=== PATIENT | male | born 1955 | race Caucasian/White ===

== ENCOUNTER 2023-02-28 08:20 | Day surgery (SDC) | payer MEDICARE ==
[~2023-02-28] VITALS: Ht 172.7 cm; Wt 86.8 kg
[~2023-02-28 08:20] MED LIST: ALBU8.5H INH; ATOR1TAB19 PO; BUDE10.7 INH; CALC600T57 PO; ECOT81TA5 PO; LOSA50TA28 PO; SEMA1PEN2 SC; WARF-20 PO; WARF-23 PO
[2023-02-28] MEDS: LR 1,000 ML IV SCH (09:05)
[2023-02-28 09:07] LABS: INR 1.04; PROTHROMBIN TIME 13.3 SECONDS (12.5-14.5)
[2023-02-28 09:08] LABS: PARTIAL THROMBOPLASTIN TIME 29.2 SECONDS (24.8-34.2)
[2023-02-28] MEDS ORDERED: ROCURONIUM BROMIDE 50MG/5ML VIAL As Ordered ONE (09:14)
[2023-02-28] MEDS ORDERED: propofoL 200 MG/20 ML VIAL As Ordered ONE (09:14)
[2023-02-28] MEDS ORDERED: LIDOCAINE 2% 100MG/5ML SDV (FOR ANES.) As Ordered ONE (09:14)
[2023-02-28] MEDS ORDERED: ONDANSETRON 4MG 2ML VIAL As Ordered ONE (09:14)
[2023-02-28] MEDS ORDERED: MIDAZOLAM INJ 2MG/2ML VIAL As Ordered ONE (09:15)
[2023-02-28] MEDS ORDERED: fentaNYL 100 MCG/2 ML INJECTION As Ordered ONE (09:15)
[2023-02-28] MEDS ORDERED: SUGAMMADEX SODIUM 500 MG/5 ML VIAL (BRIDION) As Ordered ONE (09:15)
[2023-02-28] MEDS: LIDOCAINE PRES-FREE 2% 10ML AMP INH ONE (09:19)
[2023-02-28] MEDS: ALBUTEROL SULFATE 2.5MG/0.5ML INH NEB SOLN INH ONE (09:19)
[2023-02-28] MEDS: CETACAINE SPRAY 5GM As Ordered ONE (10:00)
[2023-02-28] MEDS: EPINEPHrine 1MG/10ML SYRINGE 1.5IN As Ordered ONE (10:00)
[2023-02-28] MEDS ORDERED: PHENYLephrine 500MCG 5ML (100MCG/ML) SYRINGE As Ordered ONE (10:09)
[2023-02-28] MEDS ORDERED: oxyCODONE 5MG TAB PO PRN (10:45)
[2023-02-28] MEDS ORDERED: LR 1,000 ML IV SCH (10:45)
[2023-02-28] MEDS ORDERED: ONDANSETRON 4MG 2ML VIAL IV PRN (10:45)
[2023-02-28] MEDS ORDERED: fentaNYL 100 MCG/2 ML INJECTION IV PRN (10:45)
[2023-02-28] MEDS ORDERED: HYDROMORPHONE HCL 0.5 MG/ 0.5 ML SYRINGE IV PRN (10:45)
[2023-02-28 11:53] VITALS: BP 169/83
[2023-02-28] MEDS: LOSARTAN 50MG TABLET PO ONE (11:53)
[2023-02-28 12:36] VITALS: BP 142/82; TEMP 97.4; O2SAT 95
== END 2023-02-28 12:52 | disposition home or self-care (01) ==
LOC: M SDC 08:20
PROVIDERS: ATTEND Internal Medicine Pulmonary Disease
DX: C15.9 Malignant neoplasm of esophagus, unspecified (principal); R59.0 Localized enlarged lymph nodes; J44.9 Chronic obstructive pulmonary disease, unspecified; I10 Essential (primary) hypertension; E11.9 Type 2 diabetes mellitus without complications; E78.00 Pure hypercholesterolemia, unspecified; Z79.82 Long term (current) use of aspirin; Z86.711 Personal history of pulmonary embolism; F17.210 Nicotine dependence, cigarettes, uncomplicated; Z79.01 Long term (current) use of anticoagulants; Z79.899 Other long term (current) drug therapy
CPT/HCPCS: 31623; 31652; 36415; 71045; 85610; 85730; 88104; 88173; 88305; 93005; J1100; J2250; J2371; J2405; J3010